=== PATIENT | female | born 1935 | race Caucasian/White ===

== ENCOUNTER 2019-09-24 16:33 | Emergency (ER) | payer OTHER ==
--- NOTE | 2019-09-24 16:42 | PDOC ---
Rapid Medical Evaluation Time Seen by Provider: 09/24/19 16:40 Medical Evaluation: Allergies Allergy/AdvReac Type Severity Reaction Status Date / Time No Known Allergies Allergy Verified 08/29/16 10:10 09/24/19 16:40 CC: left sided abd pain PE: left sided abdominal tenderness with guarding Orders: abdominal w/u Patient will proceed to ER for complete evaluation. Discharge Disposition - Diagnosis LLQ abdominal pain - Referrals - Patient Instructions - Post Discharge Activity
[2019-09-24 16:46] VITALS: BMI 19.1
[2019-09-24 17:16] LABS: BASO % 0.9 % (0-2.0); EOS % 1.5 % (0-4.5); HEMATOCRIT 34.4 % (32.4-45.2); HEMOGLOBIN 11.5 GM/dL (10.7-15.3); LYMPH % 43.8 % (8-40); MCH 29.2 pg (25.7-33.7); MCHC 33.4 g/dl (32.0-36.0); MEAN CELL VOLUME 87.6 fl (80-96); MEAN PLT VOLUME 7.9 fl (7.5-11.1); MONO % 10.6 % (3.8-10.2); NEUT % 43.2 % (42.8-82.8); PLATELET COUNT 209 K/MM3 (134-434); RBC 3.93 M/mm3 (3.60-5.2); RDW 14.6 % (11.6-15.6)
[2019-09-24] MEDS ORDERED: morphine CARPU-JECT 4 MG/1 ML DISP.SYRIN IVPUSH ONE (17:37)
[2019-09-24] MEDS ORDERED: ONDANSETRON 4 MG/2 ML VIAL IVPUSH ONE (17:37)
[2019-09-24] MEDS ORDERED: LACTATED RINGERS SOLUTION 1000 ML INFUS.BAG IV ONE (17:37)
[2019-09-24] MEDS ORDERED: MORPHINE SULFATE 8 MG/ML VIAL ONE (17:41)
[2019-09-24] MEDS ORDERED: ONDANSETRON 4 MG/2 ML VIAL ONE (17:42)
[2019-09-24 17:44] LABS: ALBUMIN 3.7 g/dl (3.4-5.0); BILIRUBIN,TOTAL 0.5 mg/dL (0.2-1); CREATININE 0.9 mg/dL (0.55-1.3); POTASSIUM 4.3 mmol/L (3.5-5.1); TOT PROT 6.5 g/dl (6.4-8.2)
--- NOTE | 2019-09-24 18:28 | PDOC ---
Documentation entered by Giovanny Sánchez SCRIBE, acting as scribe for Argentina Lopez MD. Argentina Lopez MD: This documentation has been prepared by the Gonzalo bazzi Daniel, SCRIBE, under my direction and personally reviewed by me in its entirety. I confirm that the documentation accurately reflects all work, treatment, procedures, and medical decision making performed by me. History of Present Illness - General Chief Complaint: Pain, Acute Stated Complaint: ABD PAIN & DIZZNESS Time Seen by Provider: 09/24/19 16:40 History Source: Patient, Family Exam Limitations: No Limitations - History of Present Illness Initial Comments: 09/24/19 17:47 The patient is an 84 year old female with a past medical history of leukemia ( in remission), diabetes, bilateral cataracts, and chronic leg cramps here today for evaluation of abdominal pain. As per patients daughter the patients left lower quadrant abdominal pain began yesterday and has been worsening. Daughter notes that the patient has also been feeling very nauseous, dizzy, and has had episodes of brown non bloody diarrhea. Patient also notes some intermittent chest and back pain. Daughter states that the patient is visiting from [place] and came on 08/20/2020. Daughter denies the patient having any sick contacts or any recent antibiotic use. Patient denies headache, lightheadedness. Denies fever, chills. Denies shortness of breath. Denies vomiting. Denies urinary symptoms. Allergies: NKA Surgical history: cholecystectomy Past History - Past Medical History Allergies/Adverse Reactions: Allergies Allergy/AdvReac Type Severity Reaction Status Date / Time No Known Allergies Allergy Verified 09/24/19 16:45 Home Medications: Ambulatory Orders Glimepiride 2 mg PO BID 02/04/14 metFORMIN HCL [Glucophage -] 1,000 mg PO BID 02/04/14 Naproxen 500 mg PO PRN 09/24/19 Vitamin B Complex [B Complex] 1 each PO DAILY 09/24/19 Cancer: Yes (LEUKEMIA.) COPD: No Diabetes: Yes - Surgical History Abdominal Surgery: Yes Cholecystectomy: Yes - Immunization History Immunization Up to Date: Yes - Psycho Social/Smoking Cessation Hx Smoking History: Never smoked Have you smoked in the past 12 months: No Information on smoking cessation initiated: No 'Breaking Loose' booklet given: 02/04/14 Hx Alcohol Use: No Drug/Substance Use Hx: No Substance Use Type: None Review of Systems - Review of Systems Able to Perform ROS?: Yes Comments:: 09/24/19 17:47 Constitutional: no fevers or chills. No weakness HEENT: +dizziness. no headache. No congestion. No visual/hearing disturbances. CVS: +chest pain. no syncope. Resp: no sob. No cough. Gastrointestinal: +nausea. +diarrhea. +abdominal pain. no vomiting. Genitourinary: no urinary sx, hematuria. MUSCULOSKELETAL: +back pain. No joint pain and swelling. No neck pain. SKIN: no redness or skin changes, no discharge, no rash. No wounds. Hematologic: no easy bruising/bleeding. NEUROLOGIC: No headache, dizziness, LOC or altered mental status. No weakness, numbness or tingling. Psych: no anxiety or depression Allergic/Immunologic: no allergies All other systems reviewed and negative, or as documented in HPI. *Physical Exam - Vital Signs Last Vital Signs Temp Pulse Resp BP Pulse Ox 98.6 F 77 18 149/49 L 97 09/24/19 16:39 09/24/19 16:39 09/24/19 16:39 09/24/19 16:39 09/24/19 16:39 - Physical Exam 09/24/19 17:47 General: +malaised appearing. +mild distress. Awake and alert. HEENT: +hard of hearing. NCAT, PERRL, EOMI, clear conjunctiva, anicteric, moist mucus membranes, clear oropharynx, no oral lesions. Neck: neck supple, FROM Resp: CTAB, normal and even respirations, no respiratory distress CVS: RRR, no murmurs, 2+ peripheral pulses throughout, no peripheral edema Abdomen: +lower left quadrant tenderness with guarding. soft, ND, no rebound. No CVAT. Back: nontender, normal inspection and ROM MSK: no edema, ESCAMILLA x4, ROM intact. No clubbing or cyanosis. normal bulk and tone. Extremities: no calf tenderness Neuro: alert, oriented appropriately; no focal neurologic deficits Psych: Calm and cooperative Skin: warm and well perfused, cap refill <2 sec, normal color 09/24/19 18:26 ED Treatment Course - LABORATORY CBC & Chemistry Diagram: 09/24/19 16:50 09/24/19 16:50 - ADDITIONAL ORDERS Additional order review: 09/24/19 16:50 RBC 3.93 MCV 87.6 MCHC 33.4 RDW 14.6 MPV 7.9 D Neutrophils % 43.2 D Lymphocytes % 43.8 H Monocytes % 10.6 H D Eosinophils % 1.5 Basophils % 0.9 D - RADIOLOGY Radiology Studies Ordered: Category Date Time Status ABDOMEN & PELVIS CT WITH CONTR [CT] Stat CT Scan 09/24/19 16:43 Ordered - Medications Given in the ED: ED Medications Discontinued Medications Generic Name Dose Route Start Last Admin Trade Name Freq PRN Reason Stop Dose Admin Lactated Ringer's 1,000 ml 09/24/19 17:37 09/24/19 17:59 Lactated Ringers Solution IV 09/24/19 17:38 1,000 ml ONCE ONE Administration Morphine Sulfate 4 mg 09/24/19 17:37 09/24/19 17:59 Morphine Injection - IVPUSH 09/24/19 17:38 4 mg ONCE ONE Administration Ondansetron HCl 4 mg 09/24/19 17:37 09/24/19 17:59 Zofran Injection IVPUSH 09/24/19 17:38 4 mg ONCE ONE Administration Medical Decision Making - Medical Decision Making 09/24/19 18:27 Vital Signs Temp Pulse Resp BP Pulse Ox 98.6 F 77 18 149/49 L 97 09/24/19 16:39 09/24/19 16:39 09/24/19 16:39 09/24/19 16:39 09/24/19 16:39 VS reviewed, wnl DDx abdominal pain: Renal colic, biliary colic, metabolic/electrolyte derangements. GERD, PUD, esophageal spasm, pancreatitis, hepatitis, constipation , colitis, gastroenteritis, cholecystitis, UTI, pyelonephritis, ileus, SBO, medication side effect, hernia, appendicitis, diverticulitis, mesenteric ischemia. msk strain, mesenteric adenitis, psoas abscess. AAA. perforation given analgesia, IVF and antiemetics, reassess labs and lytes wnl. no wbc ct, normal Cr and lytes LFTS normal. Lipase borderline elevated 450, but otherwise not 3X upper limit of normal to suggest acute pancreatitis; likely from nausea and pain, where it is more localized to LLQ CT a/p to eval for diverticulitis, intra abdominal process/infection/ inflammation. 09/24/19 18:28 Discharge - Discharge Information Problems reviewed: Yes Clinical Impression/Diagnosis: LLQ abdominal pain - Follow up/Referral - Patient Discharge Instructions - Post Discharge Activity
[2019-09-24 18:30] LABS: INR 0.97 (0.83-1.09); PROTHROMBIN TIME (PATIENT) 11.5 SEC (9.7-13.0)
[2019-09-24 18:32] LABS: ACTIVATED PTT 34.8 SECONDS (25.2-36.5)
[2019-09-24] MEDS ORDERED: METOCLOPRAMIDE HCL INJECTION 10 MG/2 ML VIAL ONE (20:02)
[2019-09-24] MEDS ORDERED: METOCLOPRAMIDE HCL INJECTION 10 MG/2 ML VIAL IVPUSH ONE (20:03)
--- NOTE | 2019-09-24 20:47 | PDOC ---
*Physical Exam - Vital Signs Last Vital Signs Temp Pulse Resp BP Pulse Ox 98.6 F 77 18 149/49 L 97 09/24/19 16:39 09/24/19 16:39 09/24/19 16:39 09/24/19 16:39 09/24/19 16:39 - Physical Exam General Appearance: Yes: Nourished, Appropriately Dressed HEENT: positive: Normal ENT Inspection Neck: positive: Supple Respiratory/Chest: positive: Lungs Clear, Normal Breath Sounds Cardiovascular: positive: Regular Rhythm, Regular Rate, S1, S2 Gastrointestinal/Abdominal: positive: Normal Bowel Sounds, Tender (minimal - primarily subsided since ER entrance), Flat, Soft. negative: Guarding, Rebound Lymphatic: negative: Adenopathy Musculoskeletal: positive: Normal Inspection Extremity: positive: Normal Capillary Refill, Normal Inspection, Normal Range of Motion Integumentary: positive: Normal Color, Dry, Warm Neurologic: positive: Fully Oriented, Alert, Normal Mood/Affect ED Treatment Course - LABORATORY CBC & Chemistry Diagram: 09/24/19 16:50 09/24/19 16:50 - ADDITIONAL ORDERS Additional order review: Laboratory Results 09/24/19 09/24/19 18:00 16:50 PT with INR 11.50 INR 0.97 PTT (Actin FS) 34.8 Sodium 137 Potassium 4.3 Chloride 103 Carbon Dioxide 28 Anion Gap 6 L BUN 11.0 Creatinine 0.9 Est GFR (CKD-EPI)AfAm 68.53 Est GFR (CKD-EPI)NonAf 59.13 Random Glucose 232 H Calcium 9.0 Total Bilirubin 0.5 AST 19 ALT 23 Alkaline Phosphatase 72 Total Protein 6.5 Albumin 3.7 Lipase 450 H 09/24/19 16:50 RBC 3.93 MCV 87.6 MCHC 33.4 RDW 14.6 MPV 7.9 D Neutrophils % 43.2 D Lymphocytes % 43.8 H Monocytes % 10.6 H D Eosinophils % 1.5 Basophils % 0.9 D - RADIOLOGY Radiograph Interpretation: CTAP: EXAM#: TYPE/EXAM: RESULT: [id number] CT/ABDOMEN PELVIS CT WITH CONTR ABDOMEN AND PELVIS CT with intravenous contrast Clinical information: abdominal pain, evaluate for diverticulitis Multiplanar imaging was performed from the intravenous administration of nonionic contrast. Enteric contrast was not administered. No evidence of pneumoperitoneum, abscess, free intraperitoneal fluid or bowel obstruction. Colonic diverticulosis is noted without evidence of acute diverticulitis. There is no obvious acute colitis. The appendix is not definitely visualized however no indirect CT signs of acute appendicitis are seen. There is no gross noncontrast small bowel abnormality. Status post cholecystectomy as on a previous CT exam of 04/05/2015. Note is again made of common bile duct dilatation with a 1.1 cm diameter. No gross intraductal calculus is identified within the limitations of CT. There is mild intrahepatic biliary tract dilatation which appears slightly increased. A 1.9 cm left hepatic lobe hemangioma is again noted without interval change. A 3.6 x 2.7 cm right adnexal cyst is seen which appears mildly increased in size, previously measuring 2.7 x 2 cm. There is no obvious associated soft tissue nodularity or thickened internal septation. No CT evidence of left adnexal pathology. The spleen, pancreas, adrenal glands and kidneys demonstrate no discrete pathology. There is no aortic aneurysm. No definite lymphadenopathy is identified on the basis of size criteria. No obvious acute osseous abnormality is noted. IMPRESSION: No definite CT findings of acute pathology are identified. Colonic diverticulosis is noted without evidence of acute diverticulitis. Status post cholecystectomy as on a previous exam of 04/05/2015. Common bile duct dilatation is again noted with a 1.1 cm diameter. There is mild intrahepatic biliary tract dilatation which appears slightly increased. Clinical/laboratory correlation is suggested. Stable 1.9 cm left hepatic lobe hemangioma. A 3.6 x 2.7 cm right adnexal cyst is seen which has mildly increased in size since the 2014 exam previously measuring 2.7 x 2 cm. - Medications Given in the ED: ED Medications Discontinued Medications Generic Name Dose Route Start Last Admin Trade Name Freq PRN Reason Stop Dose Admin Lactated Ringer's 1,000 ml 09/24/19 17:37 09/24/19 17:59 Lactated Ringers Solution IV 09/24/19 17:38 1,000 ml ONCE ONE Administration Metoclopramide HCl 10 mg 09/24/19 20:03 09/24/19 20:13 Reglan Injection - IVPUSH 09/24/19 20:04 10 mg ONCE ONE Administration Morphine Sulfate 4 mg 09/24/19 17:37 09/24/19 17:59 Morphine Injection - IVPUSH 09/24/19 17:38 4 mg ONCE ONE Administration Ondansetron HCl 4 mg 09/24/19 17:37 09/24/19 17:59 Zofran Injection IVPUSH 09/24/19 17:38 4 mg ONCE ONE Administration Medical Decision Making - Medical Decision Making Patient signed out to Dr. Ken pending CTAP, labs, urine and final ED disposition CTAP: Unremarkable, diverticulosis without diverticulitis - See full report above Urine: No signs of infection Re-assessment: Patient is eating and drinking a hamburger at bedside. The family states they will be with her 25/03 and she will not be alone and the family will bring her back in if she refuses to eat or drink. She no longer has abdominal pain in the emergency room. They are requesting for a PCP her for to follow up with in the next 2 days - will refer her to the [facility] [address] Dispo: Home with PCP referall - Strict return precautions Discharge - Discharge Information Problems reviewed: Yes Clinical Impression/Diagnosis: LLQ abdominal pain Condition: Improved Disposition: HOME - Admission No - Follow up/Referral Referrals: [facility] [Provider Group] - Patient Discharge Instructions Patient Printed Discharge Instructions: Acute Abdominal Pain Additional Instructions: You came into the ER with abdominal pain. We did a cat scan which showed you have no evidence of an acute infection. We handed you a copy of your cat scan results for you to bring to the primary care doctor we are referring you to when you follow up in the next 2 or 3 days. Please discuss this report with your primary doctor. Please call up the doctor we are referring you to in the next 2 to 4 days. Your emergency room visit and workup is not complete without this follow up appointment. Come back to the ER immediately if your pain worsens, you start vomiting, have diarrhea, get a fever, feel like you cannot eat or drink, feel like you are dehydrated, or have any other new or worsening concerns. Thank you for coming to the [facility] ER. We hope you feel better soon! Print Language: BELARUSIAN - Post Discharge Activity
[2019-09-24 20:59] VITALS: BP 126/57; PULSE 64; TEMP 97.8
[2019-09-24 21:05] LABS: URINE APPEARANCE CLEAR; URINE BILIRUBIN NEGATIVE (NEGATIVE); URINE COLOR YELLOW; URINE GLUCOSE (UA) NEGATIVE (NEGATIVE); URINE KETONE NEGATIVE (NEGATIVE); URINE LEUK ESTERASE NEGATIVE (NEGATIVE); URINE NITRITE NEGATIVE (NEGATIVE); URINE PROTEIN NEGATIVE (NEGATIVE); URINE UROBILINOGEN 0.2 mg/dL (0.2-1.0)
== END 2019-09-24 21:44 | disposition home or self-care (01) ==
LOC: JER 16:33
PROC: 3E0F7GC Introduction of Other Therapeutic Substance into Respiratory Tract, Via Natural or Artificial Opening (ICD-10-PCS; principal; 2019-09-24)
PROC: 3E033GC Introduction of Other Therapeutic Substance into Peripheral Vein, Percutaneous Approach (ICD-10-PCS; 2019-09-24)
PROC: 3E033NZ Introduction of Analgesics, Hypnotics, Sedatives into Peripheral Vein, Percutaneous Approach (ICD-10-PCS; 2019-09-24)
DX: R10.32 Left lower quadrant pain (principal)
CPT/HCPCS: 36415; 74177-TC; 80053; 81003; 83690; 85025; 85610; 85730; 87086; 99284-25; Q9967